=== PATIENT | female | born 1985 | race Two or more races ===

== ENCOUNTER 2020-08-23 04:42 | Day surgery (SDC) | payer OTHER ==
[2020-08-21 18:18] VITALS: BMI 23.2
--- NOTE | 2020-08-23 06:51 | HP ---
History & Physical Update - History History: No Change - Physical Physical: No Change - Assessment Assessment: No Change - Plan Plan: No Change (H&P reviwed, no changes, for hysteroscopy , polypectomy)
[2020-08-23] MEDS ORDERED: MIDAZOLAM HCL 2 MG/2 ML SINGLE DOSE VIAL ONE (07:27)
[2020-08-23] MEDS ORDERED: PROPOFOL 20 ML ONE (07:27)
[2020-08-23] MEDS ORDERED: ONDANSETRON 4 MG/2 ML VIAL IVPUSH PRN ×2 (07:48→08:48)
[2020-08-23] MEDS ORDERED: oxyCODONE HCL 5 MG TABLET PO PRN ×2 (07:48→08:48)
[2020-08-23] MEDS ORDERED: LACTATED RINGERS SOLUTION 1,000 ML IV SCH (08:00)
[2020-08-23] MEDS ORDERED: DEXAMETHASONE SOD PHOSPHATE 4 MG/1 ML VIAL ONE (08:06)
[2020-08-23] MEDS ORDERED: KETOROLAC TROMETHAMINE 30 MG/1 ML VIAL ONE (08:07)
[2020-08-23] MEDS ORDERED: IBUPROFEN 600 MG TABLET (FP) PO PRN (08:48)
[2020-08-23] MEDS ORDERED: IBUPROFEN 800 MG/8 ML IJ IVPB PRN (08:48)
--- NOTE | 2020-08-23 08:51 | OP ---
Operative Note - Note: Operative Date: 08/23/20 Pre-Operative Diagnosis: menometrorrhagia Operation: hysteroscopy, resection submucos myoma, D&C Findings: cervical adhesions, irregular EM, submucos myoma Post-Operative Diagnosis: Same as Pre-op Surgeon: Donn Ivy Anesthesia: Spinal Specimens Removed: fibroid , EMC Estimated Blood Loss (mls): 50 Instrument used (Debridements only): Symphion Drains & Tubes with Location: none Blood Volume Replaced (mls): 0 Operative Report Dictated: Yes
[2020-08-23] MEDS ORDERED: ELECTROLYTE-148 SOLN 1,000 ML IV SCH (09:00)
[2020-08-23 10:57] VITALS: PULSE 68
[2020-08-23 11:57] VITALS: BP 118/65; TEMP 98.4
--- NOTE | 2020-08-23 17:31 | OP ---
DATE OF OPERATION: 08/23/2020 PREOPERATIVE DIAGNOSIS: Menometrorrhagia, submucous myoma. POSTOPERATIVE DIAGNOSIS: Menometrorrhagia, submucous myoma. PROCEDURE: Hysteroscopy, dilation and curettage. Resection of submucous myoma. SURGEON: Gunnar Gonzalez ANESTHESIA: Spinal. ESTIMATED BLOOD LOSS: 50 mL. FINDINGS: A submucous myoma cervical adhesions. OPERATION: Patient was taken to operating room, had adequate spinal anesthesia. Abdomen and perineum were prepped, and vagina was prepped and draped. Examination under anesthesia revealed external genitalia to be normal. Vagina was normal, cervix was clean, no gross lesion. Uterus was normal size. Adnexa, no masses were palpable. Then, with a weighted speculum in the vagina, anterior lip of the cervix was grasped with a single-loop tenaculum. Cervix was slightly dilated with Hegar dilator, and then Symphion resectoscope was introduced. Visualization of the endocervical canal appeared to be adhesions and difficulty with introducing the Symphion into the uterine cavity. Symphion resectoscope was introduced through the direct vision through the adhesions, and then into the endometrial cavity. Visualization of the fundal area showed to be normal. Both cornual regions were identified. Uterine ostium was visualized. There were some small submucous myomas in the lower part of the mid body of the uterus. This was resected with Symphion resectoscope, and then there were several endometrial polyps also which was small one floating, which was also resected with the Symphion, and then endometrium was curetted with a smooth gentle curetting. Patient tolerated procedure well, left the OR in good condition. SERGIO MOELLER M.D. [id number]
--- NOTE | 2020-08-26 11:40 | PATH ---
Surgical Pathology Report Patient Name: DEBRA DAHL [facility]. Rec. #: [id number] /Age/Gender: 1985 (Age: 34) / F Account: [id number] Location: [facility] SURGICAL Taken: 08/23/2020 Received: 08/23/2020 Reported: 08/26/2020 Physicians: Donn Ivy M.D. Specimen(s) Received ENDOMETRIAL CURETTINGS AND FIBROIDS Clinical History Submucous myoma, irregular vaginal bleeding Final Diagnosis ENDOMETRIAL CURETTINGS AND FIBROIDS, HYSTEROSCOPIC RESECTION DILATION AND CURETTAGE: FIBROMUSCULAR TISSUE SUGGESTIVE OF SUBMUCOSAL LEIOMYOMA. RARE POLYPOID FRAGMENTS OF ENDOMETRIUM SUGGESTIVE OF ENDOMETRIAL POLYP. SECRETORY ENDOMETRIUM WITH GLANDULAR AND STROMAL BREAKDOWN. BENIGN CERVICAL TISSUE. Electronically Signed Britta Mares M.D. Gross Description Received in formalin labeled "endometrial curettings and fibroids," is a 2.4 x 1.7 x 0.3 cm aggregate of blunt red soft tissue fragments admixed with blood-tinged mucous. The formalin is filtered and the specimen is entirely submitted in one cassette. /08/23/2020 saudi/08/23/2020
== END 2020-08-23 13:45 | disposition home or self-care (01) ==
LOC: JASU-SURG 04:42
PROVIDERS: ATTEND Obstetrics & Gynecology
PROC: 0UB98ZZ Excision of Uterus, Via Natural or Artificial Opening Endoscopic (ICD-10-PCS; principal; 2020-08-23 08:00)
PROC: 0UDB8ZX Extraction of Endometrium, Via Natural or Artificial Opening Endoscopic, Diagnostic (ICD-10-PCS; 2020-08-23 08:00)
DX: N92.1 Excessive and frequent menstruation with irregular cycle (principal); D25.0 Submucous leiomyoma of uterus
CPT/HCPCS: 81025; 88305-TC; 94760